=== PATIENT | female | born 1940 | race Hispanic/Latino ===

== ENCOUNTER 2020-06-09 22:23 | Observation (INO) | payer MEDICARE ==
[~2020-06-09] VITALS: Ht 152.4 cm; Wt 62.2 kg
--- NOTE | 2020-06-09 22:47 | Emergency Department Note ---
History of Present Illnes History of Present Illness History of Present Illness This is a 79 year old female presents to the ED for one week h/o dizziness and one day h/o of epigastric pain. Patient seen at bedside with unlabored respirations in NAD Historian: Patient Onset (how long ago): day(s) (1) Radiation: Reports non-radiation Severity: moderate Onset quality: gradual Duration (how long): day(s) Timing of current episode: constant Progression: unchanged Chronicity: new Relieving factors: none Exacerbating factors: none Associated symptoms: Reports chest pain Treatments prior to arrival: none Past Medical/Family History Physician Review I have reviewed the patient's past medical and family history. Any updates have been documented here. Past Medical History Recent Fever: No Clinical Suspicion of Infectio: No New/Unexplained Change in Ment: No Past Medical History: Hypertension Past Surgical History: None Social History Smoking Cessation: Never Smoker Alcohol Use: None Any Illegal Drug Use: No Review of Systems Review of Systems Constitutional: Reports no symptoms EENTM: Reports no symptoms Cardiovascular: Reports chest pain Respiratory: Reports no symptoms Gastrointestinal: Reports no symptoms Genitourinary: Reports no symptoms Musculoskeletal: Reports no symptoms Integumentary: Reports no symptoms Neurological: Reports headache Psychological: Reports no symptoms Endocrine: Reports no symptoms Hematological/Lymphatic: Reports no symptoms Physical Exam Related Data Allergies: Coded Allergies: No Known Allergies (Unverified , 06/09/20) Triage Vital Signs Vital Signs Date Time Temp Pulse Resp B/P (MAP) Pulse Ox O2 Delivery O2 Flow Rate FiO2 06/09/20 22:54 98.3 78 17 167/74 98 06/10/20 00:42 Room Air Vital signs reviewed: Yes Physical Exam CONSTITUTIONAL Constitutional: Present well-developed, Present well-nourished HENT HENT: Present normocephalic, Present atraumatic, Present oropharynx clear/moist, Present nose normal HENT L/R: Present left ext ear normal, Present right ext ear normal EYES Eyes: Reports PERRL, Reports conjunctivae normal NECK Neck: Present ROM normal PULMONARY Pulmonary: Present effort normal, Present breath sounds normal CARDIOVASCULAR Cardiovascular: Present regular rhythm, Present heart sounds normal, Present capillary refill normal, Present normal rate GASTROINTESTINAL Abdominal: Present soft, Present nontender, Present bowel sounds normal GENITOURINARY Genitourinary: Present exam deferred SKIN Skin: Present warm, Present dry MUSCULOSKELETAL Musculoskeletal: Present ROM normal NEUROLOGICAL Neurological: Present alert, Present oriented x 3, Present no gross motor or sensory deficits PSYCHOLOGICAL Psychological: Present mood/affect normal, Present judgement normal Results Laboratory Lab results reviewed: Yes Imaging Imaging results reviewed: Yes Impressions [place] [id number] Patient Name: JANET KELLY MR #: [id number] : 1940 Age/Sex: 79/F Req #: [id number] Adm Physician: Ordered by: SAMANTHA AREVALO DO Report #: [id number] Location: ER Room/Bed: Procedure: [id number] DX/CHEST SINGLE (PORTABLE) Exam Date: 06/09/20 Exam Time: 2330 REPORT STATUS: Signed EXAMINATION: CHEST SINGLE (PORTABLE) INDICATION: Dizziness, headache COMPARISON: None FINDINGS: TUBES and LINES: None. LUNGS: Normal lung volumes. Lungs are clear. No consolidations. PLEURA: No pleural effusion or pneumothorax. HEART AND MEDIASTINUM: The cardiomediastinal silhouette is unremarkable. Aortic calcifications. BONES AND SOFT TISSUES: No acute osseous lesion. Soft tissues are unremarkable. Degenerative changes. UPPER ABDOMEN: No free air under the diaphragm. IMPRESSION: No acute thoracic radiographic abnormality. Signed by: Dakota Morrison DO on 06/10/2020 12:15 AM Dictated By: DAKOTA MORRISON DO Transcribed By: ANUP on 06/10/2014 COPY TO: SAMANTHA AREVALO DO~ [place] [id number] Patient Name: JANET KELLY MR #: [id number] : 1940 Age/Sex: 79/F Req #: [id number] Adm Physician: Ordered by: SAMANTHA AREVALO DO Report #: [id number] Location: Room/Bed: Procedure: [id number] CT/CT BRAIN WO Exam Date: 06/09/20 Exam Time: 2324 REPORT STATUS: Signed EXAMINATION: Head CT without contrast. HISTORY:Headache, dizziness. COMPARISON:None. TECHNIQUE: Multidetector axial images were obtained from the foramen magnum to the vertex without contrast. The images were reconstructed using brain and bone algorithms. Thin section brain images were reformatted into coronal and sagittal planes. Dose modulation, iterative reconstruction, and/or weight based adjustment of the mA/kV was utilized to reduce the radiation dose to as low as reasonably achievable. Intravenous contrast: None IMAGE QUALITY: Acceptable. FINDINGS: Skull/scalp: No lytic or blastic. lesions. No surgical changes. Parenchyma: Nonspecific few, scattered supratentorial white matter hypodensity are likely related to small vessel ischemic changes. No acute hemorrhage, mass or acute major vascular territorial infarct. Arteries: No density suggestive of thrombosis. Dural sinuses: No abnormal density suggestive of thrombosis. Ventricles: No hydrocephalus or displacement. Extra-axial spaces: No abnormal density. Brain volume: Mild generalized cerebral volume loss. Craniocervical junction: No mass, Chiari malformation, or basilar invagination. Sella: No mass. Paranasal/mastoid sinuses: Imaged portions unremarkable. IMPRESSION: No acute intracranial abnormality. Signed by: Dr. Ambika Hoyos M.D. on 06/09/2020 11:38 PM Dictated By: AMBIKA HOYOS MD 37 Transcribed By: ANUP on 06/09/202337 COPY TO: SAMANTHA AREVALO DO~ Procedures 12 Lead ECG Interpretation ECG Interpretation : ECG: ECG 1 Bender Helper: Interpreted by ED physician Date: Jun 09, 2020 Time: 23:32 Prior ECG tracings: reviewed Rate: normal BPM: 70 QRS axis: normal ST segments normal: Yes T waves normal: Yes Clinical Impression: non-specific ECG Clinical Decision Tools HEART Score Another reason for symptoms: HEART score not applicable HEART Score: HEART Score Response (Comments) Value History Slightly suspicious 0 EKG Normal 0 Age > or equal to 65 2 Risk factors 1 or 2 risk factors 1 Troponin < or = to normal limit Total 3 Assessment & Plan Medical Decision Making MDM Diff Dx: CVA, ACS , sepsis Assessment & Plan Final Impression: (1) Angina at rest (2) Dizzinesses Depart Disposition: ADMITTED Home Meds Reported Medications Benazepril/Hydrochlorothiazide (BENAZEPRIL-HCTZ 10-12.5 MG TAB) 1 Each Tablet, 1 PO DAILY 06/10/20 Aspirin (ASPIRIN) 81 Mg Tab.chew, 81 06/10/20 Simvastatin (SIMVASTATIN) 40 Mg Tablet, 40 MG PO 2100, #30 TAB 06/10/20 SAMANTHA AREVALO DO Jun 09, 2020 22:47
[2020-06-09] MEDS ORDERED: ASPIRIN 81 MG CHEW TAB PO ONE (23:00)
[2020-06-09 23:22] LABS: BASOPHILS % 0.4 % (0.0-1.0); EOSINOPHILS # (AUTO) 0.1 (0.0-0.4); EOSINOPHILS % 1.3 % (0.0-6.0); HEMATOCRIT 36.4 % (34.2-44.1); HEMOGLOBIN 11.8 g/dL (12.0-16.0); LYMPHOCYTES # (AUTO) 1.9 (1.0-3.2); LYMPHOCYTES % 28.4 % (18.0-39.1); MEAN CORPUSCULAR HEMOGLOBIN 29.9 pg (28-32); MEAN CORPUSCULAR HGB CONC 32.4 g/dL (31-35); MEAN CORPUSCULAR VOLUME 92.4 fL (81-99); MONOCYTES # (AUTO) 0.7 (0.2-0.8); MONOCYTES % 10.1 % (4.4-11.3); NEUTROPHILS # (AUTO) 4.1 (2.1-6.9); NEUTROPHILS % 59.7 % (38.7-80.0); PLATELET COUNT 369 x10e3/uL (140-360); RED BLOOD COUNT 3.94 x10e6/uL (3.6-5.1); RED CELL DISTRIBUTION WIDTH 14.1 % (11.7-14.4)
[2020-06-09 23:36] LABS: ALBUMIN/GLOBULIN RATIO 0.9 (0.8-2.0); ANION GAP 14.1 mmol/L (8-16); CREATININE, SERUM 1.04 mg/dL (0.57-1.11); POTASSIUM 4.1 mmol/L (3.5-5.1)
--- NOTE | 2020-06-09 23:41 | Diagnostic Imaging Report ---
EXAMINATION: Head CT without contrast. HISTORY:Headache, dizziness. COMPARISON:None. TECHNIQUE: Multidetector axial images were obtained from the foramen magnum to the vertex without contrast. The images were reconstructed using brain and bone algorithms. Thin section brain images were reformatted into coronal and sagittal planes. Dose modulation, iterative reconstruction, and/or weight based adjustment of the mA/kV was utilized to reduce the radiation dose to as low as reasonably achievable. Intravenous contrast: None IMAGE QUALITY: Acceptable. FINDINGS: Skull/scalp: No lytic or blastic. lesions. No surgical changes. Parenchyma: Nonspecific few, scattered supratentorial white matter hypodensity are likely related to small vessel ischemic changes. No acute hemorrhage, mass or acute major vascular territorial infarct. Arteries: No density suggestive of thrombosis. Dural sinuses: No abnormal density suggestive of thrombosis. Ventricles: No hydrocephalus or displacement. Extra-axial spaces: No abnormal density. Brain volume: Mild generalized cerebral volume loss. Craniocervical junction: No mass, Chiari malformation, or basilar invagination. Sella: No mass. Paranasal/mastoid sinuses: Imaged portions unremarkable. IMPRESSION: No acute intracranial abnormality. Signed by: Dr. Ambika Hoyos M.D. on 06/09/2020 11:38 PM
[2020-06-09 23:43] LABS: CREATINE KINASE MB 5.7 ng/mL (0-5.0)
[2020-06-09] MEDS ORDERED: FAMOTIDINE 20 MG/2 ML VIAL IV STA (23:55)
--- NOTE | 2020-06-10 00:19 | Diagnostic Imaging Report ---
EXAMINATION: CHEST SINGLE (PORTABLE) INDICATION: Dizziness, headache COMPARISON: None FINDINGS: TUBES and LINES: None. LUNGS: Normal lung volumes. Lungs are clear. No consolidations. PLEURA: No pleural effusion or pneumothorax. HEART AND MEDIASTINUM: The cardiomediastinal silhouette is unremarkable. Aortic calcifications. BONES AND SOFT TISSUES: No acute osseous lesion. Soft tissues are unremarkable. Degenerative changes. UPPER ABDOMEN: No free air under the diaphragm. IMPRESSION: No acute thoracic radiographic abnormality. Signed by: Dakota Morrison DO on 06/10/2020 12:15 AM
--- OUTSIDE RECORDS SUMMARY | 2020-06-10 00:25 | XMS REPORT | Continuity of Care Document ---
Author Author [facility] t Organization 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 hypercholesterolemia Pure Hypercholesterolemia Problem Ac tive 2015-08-21 00:00:00 [facility] Hypertensive disorder Hypertensive Disorder Problem Active 201 01-16-15 00:00:00 [facility] ractice Arthropathy Arthropathy Problem Active 2015-08-21 00:00:00 [facility] Knee pain Knee Pain Problem Active 2015-08-21 00:00:00 [facility] Allergies, Adverse Reactions, Alerts This patient has no known allergies or adverse reactions. Social History Smoking Status Start Date Stop Date Source Never Smoker [facility] Medications Ordered Medication Name Filled Medication Name Start Date Stop Da te Current Medication? Ordering Clinician Indication Dosage Frequency Signature (SIG) Comments Components Source benazepril 10 mg-hydrochlorothiazide 12. 5 mg tablet TAKE 1 TABLET BY MOUTH EVERY DAY benazepril 10 mg-hydrochlorothiazide 12. 5 mg tablet TAKE 1 TABLET BY MOUTH EVERY DAY No benazepril 10 mg-hydrochlorothiazide 12.5 mg tablet TAKE 1 TABLET BY MOUTH EVERY DAY [facility] simvastatin 40 mg tablet TAKE 1 TABLET BY MOUTH IN THE EVENING simvastatin 40 mg tablet TAKE 1 TABLET BY MOUTH IN THE EVENING No simvastatin 40 mg tablet TAKE 1 TABLET BY MOUTH IN THE EVENING [facility] Vitamin D2 50,000 unit capsule Take 1 ca psule every week by oral route for 90 days. Vitamin D2 50,000 unit capsule Take 1 ca psule every week by oral route for 90 days. No 1capsule(s) Q1W Vitamin D2 50,000 unit capsule Take 1 capsule every week by oral route for 90 days. [facility] levofloxacin 500 mg tablet levofloxacin 500 mg tablet 2017 00:00:00 No levofloxacin 500 mg tablet [facility] Ilevro 0.3 % eye drops,suspension Ilevro 0.3 % eye drops,suspens ion 2016-11-04 00:00:00 No Ilevro 0.3 % eye drops,suspensi on [facility] ketorolac 0.5 % eye drops ketorolac 0.5 % eye drops 00:00:00 No ketorolac 0.5 % eye drops [facility] prednisolone acetate 1 % eye drops,suspension predniso lone acetate 1 % eye drops,suspension 2016-11-04 00:00:00 No prednisolone acetate 1 % [facility] drops,suspension [facility] Pre[facility]ar 13 (PF) 0.5 mL intramuscular syringe Prevnar 1 3 (PF) 0.5 mL intramuscular syringe 2016-11-04 00:00:00 No Prevnar 13 (PF) 0.5 mL intramuscular syringe [facility] ctice Vigamox 0.5 % eye drops Vigamox 0.5 % eye drops 2016-11-04 00:00 :00 No Vigamox 0.5 % eye drops [facility] Immunizations Ordered Immunization Name Filled Immunization Name Date Status Comments Source influenza, high dose seasonal influenza, high dose seasonal 2017 17:00:00 Completed [facility] pneumococcal conjugate PCV 13 pneumococcal conjugate PCV 13 2015 00:00:00 Completed [facility] influenza, seasonal, injectable influenza, seasonal, injecta ble 2014-09-21 00:00:[address] [facility] Vital Signs Vital Name Observation Time Observation Value Comments Source BP Diastolic 2017-09-21 00:00:00 74 mm[Hg] [facility] Height 2017-09-21 00:00:00 62 [in_i] [facility] BMI (Body Mass Index) 2017-09-21 00:00:00 27.4 kg/m2 [facility] BP Systolic 2017-09-21 00:00:00 116 mm[Hg] [facility] Body Weight 2017-09-21 00:00:00 150 [lb_av] [facility] BP Diastolic 2017-05-14 00:00:00 72 mm[Hg] [facility] Height 2017-05-14 00:00:00 62 [in_i] [facility] BMI (Body Mass Index) 2017-05-14 00:00:00 27.8 kg/m2 [facility] BP Systolic 2017-05-14 00:00:00 122 mm[Hg] [facility] Body Weight 2017-05-14 00:00:00 152 [lb_av] [facility] BP Diastolic 2016-11-04 00:00:00 86 mm[Hg] [facility] Height 2016-11-04 00:00:00 62 [in_i] [facility] BMI (Body Mass Index) 2016-11-04 00:00:00 27.8 kg/m2 [facility] BP Systolic 2016-11-04 00:00:00 138 mm[Hg] [facility] Body Weight 2016-11-04 00:00:00 152 [lb_av] [facility] BP Diastolic 2015-11-27 00:00:00 67 mm[Hg] [facility] Height 2015-11-27 00:00:00 62 [in_i] [facility] BP Systolic 2015-11-27 00:00:00 134 mm[Hg] [facility] Body Weight 2015-11-27 00:00:00 151.2 [lb_av] [facility] BMI (Body Mass Index) 2015-11-27 00:00:00 27.65 kg/m2 [facility] BP Diastolic 2015-08-21 00:00:00 82 mm[Hg] [facility] Height 2015-08-21 00:00:00 62 [in_i] [facility] BMI (Body Mass Index) 2015-08-21 00:00:00 27.21 kg/m2 [facility] BP Systolic 2015-08-21 00:00:00 124 mm[Hg] [facility] Body Weight 2015-08-21 00:00:00 148.8 [lb_av] [facility] BP Diastolic 2015-05-01 00:00:00 80 mm[Hg] [facility] Height 2015-05-01 00:00:00 62 [in_i] [facility] BMI (Body Mass Index) 2015-05-01 00:00:00 27.76 kg/m2 [facility] BP Systolic 2015-05-01 00:00:00 135 mm[Hg] [facility] Body Weight 2015-05-01 00:00:00 151.8 [lb_av] [facility] BP Diastolic 2014-12-21 00:00:00 68 mm[Hg] [facility] Height 2014-12-21 00:00:00 62 [in_i] [facility] BMI (Body Mass Index) 2014-12-21 00:00:00 27.03 kg/m2 [facility] BP Systolic 2014-12-21 00:00:00 132 mm[Hg] [facility] Body Weight 2014-12-21 00:00:00 147.8 [lb_av] [facility] BP Diastolic 2014-09-21 00:00:00 70 mm[Hg] [facility] Height 2014-09-21 00:00:00 62 [in_i] [facility] BMI (Body Mass Index) 2014-09-21 00:00:00 26.59 kg/m2 [facility] BP Systolic 2014-09-21 00:00:00 110 mm[Hg] [facility] Body Weight 2014-09-21 00:00:00 145.4 [lb_av] [facility] Height 2014-04-25 00:00:00 62 [in_i] [facility] Body Weight 2014-04-25 00:00:00 146.2 [lb_av] [facility] Height 2014-03-27 00:00:00 62 [in_i] [facility] Body Weight 2014-03-27 00:00:00 149.4 [lb_av] [facility] Height 2013-06-20 00:00:00 62 [in_i] [facility] Body Weight 2013-06-20 00:00:00 143.6 [lb_av] [facility] Height 2012-12-31 00:00:00 62 [in_i] [facility] Body Weight 2012-12-31 00:00:00 149.4 [lb_av] [facility] Height 2012-12-01 00:00:00 62 [in_i] [facility] Body Weight 2012-12-01 00:00:00 147 [lb_av] [facility] Procedures Procedure Date / Time Performed Performing Clinician Sourc e bone density 2017-05-14 00:00:00 [facility] Plan of Care Planned Activity Planned Date Details Comments Source Instructions [facility] Encounters Start Date/Time End Date/Time Encounter Type Admission Type [facility] Care Department Encounter ID Source 2017-10-09 00:00:00 2017-10-09 00:00:00 Katie Hemphill: [address], [address], [place] [address], Ph[address] [facility] Care Management [id number] [facility] 2017-09-22 00:00:00 2017-09-22 00:00:00 Katie Hemphill: [address], [address], [place] [address], Ph. [facility] [id number] [facility] 2017-09-21 00:00:00 2017-09-21 00:00:00 CHIKI KoenigP: [id number] Counts Include [facility], [facility] [address] [place] [address], Ph. [facility] [id number] [facility] 2017-05-14 00:00:00 2017-05-14 00:00:00 CHIKI KoeingP: [id number] Counts Include [address] [facility], [facility] [address], [place] [address], Ph. [facility] [id number] [facility] 2016-11-04 00:00:00 2016-11-04 00:00:00 KELBY Negrete : [id number] Counts Include [address] [facility], [address], [place] [address], Ph. [facility] [id number] [facility] Practice Results Test Description Test Time Test Comments Results Result Comments Source CHEST SINGLE (PORTABLE) 2020-06-10 00:14:00 [facility] [address] [address] Patient Name: JANET KELLY MR #: [id number] : 1940 Age/Sex: 79/F Req #: [id number] Adm Physician: Ordered by: SAMANTHA AREVALO DO Report #: [id number] Location: ER Room/Bed: Procedure: [id number] DX/CHEST SINGLE (PORTABLE) Exam Date: 06/09/20 Exam Time: 2330 REPORT STATUS: Signed EXAMINATION: CHEST SINGLE (PORTABLE) INDICATION: Dizziness, headache COMPARISON: None FINDINGS: TUBES and LINES: None. LUNGS: Normal lung volumes. Lungs are clear. No consolidations. PLEURA: No pleural effusion or pneumothorax. HEART AND MEDIASTINUM: The cardiomediastinal silhouette is unremarkable. Aortic calcifications. BONES AND SOFT TISSUES: No acute osseous lesion. Soft tissues are unremarkable. Degenerative changes. UPPER ABDOMEN: No free air under the diaphragm. IMPRESSION: No acute thoracic radiographic abnormality. Signed by: Dakota Morrison DO on 06/10/2020 12:15 AM Dictated By: DAKOTA MORRISON DO Transcribed By: ANUP on 06/10/2014 COPY TO: SAMANTHA AREVALO DO CT BRAIN WO 2020-06-09 23:35:[address] [address] Patient Name: JANET KELLY MR #: [id number] : 1940 Age/Sex: 79/F Req #: [id number] Adm Physician: Ordered by: SAMANTHA AREVALO DO Report #: [id number] Location: ER Room/Bed: Procedure: [id number] CT/CT BRAIN WO Exam Date: 06/09/20 Exam Time: 2325 REPORT STATUS: Signed EXAMINATION: Head CT without contrast. HISTORY:Headache, dizziness. COMPARISON:None. TECHNIQUE: Multidetector axial images were obtained from the foramen magnum to the vertex without contrast. The images were reconstructed using brain and bone algorithms. Thin section brain images were reformatted into coronal and sagittal planes. Dose modulation, iterative reconstruction, and/or weight based adjustment of the mA/kV was utilized to reduce the radiation dose to as low as reasonably achievable. Intravenous contrast: None IMAGE QUALITY: Acceptable. FINDINGS: Skull/scalp: No lytic or blastic. lesions. No surgical c hanges. Parenchyma: Nonspecific few, scattered supratentorial white matter hypodensity are likely related to small vessel ischemic changes. No acute hemorrhage, mass or acute major vascular territorial infarct. Arteries: No density suggestive of thrombosis. Dural sinuses: No abnormal density suggestive of thrombosis. Ventricles: No hydrocephalus or displacement. Extra-axial spaces: No abnormal density. Brain volume: Mild generalized cerebral volume loss. Craniocervical junction: No mass, Chiari malformation, or basilar invagination. Sella: No mass. Paranasal/mastoid sinuses: Imaged portions unremarkable. IMPRESSION: No acute intracranial abnormality. Signed by: Dr. Ambika Hoyos M.D. on 06/09/2020 11:38 PM Dictated By: AMBIKA HOYOS MD 37 Transcribed By: ANUP on 06/09/202337 COPY TO: SAMANTHA AREVALO DO Hemoglobin A1c/Hemoglobin.total in Blood 2017-05-15 07:31:00 Test Item hemoglobin A1C (test code = hemoglobin A1C) 5.6 % of total HGB <5.7 EAG (mg/dL) (test code = EAG (mg/dL)) 114 (calc) EAG (mmol/L) (test code = EAG (mmol/L)) 6.3 (calc) [id number] D [Mass/volume] in Serum or Plasma 2017-05-15 07:31:00* Test Item Value Reference Range Interpretation Comments vitamin D,25-oh,total,ia (test code = vitamin D,25-oh,total,ia) 14 NG/mL 30-100 L [facility] - [facility] or Plasma 2017-05-15 07:31:00* Test Item Value Reference Range Interpretation Comments glucose (test code = glucose) 94 mg/dL 65-99 urea nitrogen (BUN) (test code = urea nitrogen (BUN)) 24 mg/dL 7-25 creatinine (test code = creatinine) 0.92 mg/dL 0.60-0.93 eGFR non-afr. prydeinig (test code = eGFR non-afr. prydeinig) 61 mL/min/1.73m2 > or = 60 eGFR (test code = eGFR ) 71 mL/min/1.73m2 > or = 60 BUN/creatinine ratio (test code = BUN/creatinine ratio) not applica ble 6-22 sodium (test code = sodium) 141 mmol/L 135-146 potassium (test code = potassium) 4.4 mmol/L 3.5-5.3 chloride (test code = chloride) 107 mmol/L 98-110 carbon dioxide (test code = carbon dioxide) 23 mmol/L 20-31 calcium (test code = calcium) 9.9 mg/dL 8.6-10.4 protein, total (test code = protein, total) 8.3 g/dL 6.1-8.1 H albumin (test code = albumin) 4.3 g/dL 3.6-5.1 globulin (test code = globulin) 4.0 g/dL (calc) 1.9-3.7 H albumin/globulin ratio (test code = albumin/globulin ratio) 1.1 (calc) 1.0-2.5 bilirubin, total (test code = bilirubin, total) 0.3 mg/dL 0.2-1. 2 alkaline phosphatase (test code = alkaline phosphatase) 104 U/L 33-130 AST (test code = AST) 18 U/L 10-35 ALT (test code = ALT) 15 U/L 6-29 [facility] free [Mass/volume] in Serum or Plasma 2017-05-15 07:31:00* Test Item Value Reference Range Interpretation Comments T4, free (test code = T4, free) 1.1 NG/dL 0.8-1.8 [facility] 1996 panel - Serum or [id number] 07:31:00* Test Item Value Reference Range Interpretation Comments cholesterol, total (test code = cholesterol, total) 140 mg/dL <2 00 HDL cholesterol (test code = HDL cholesterol) 43 mg/dL >50 L triglycerides (test code = triglycerides) 216 mg/dL <150 H LDL-cholesterol (test code = LDL-cholesterol) 69 mg/dL (calc) chol/HDLC ratio (test code = chol/HDLC ratio) 3.3 (calc) <5.0 non HDL cholesterol (test code = non HDL cholesterol) 97 mg/dL (belinda c) <130 [facility]CB [facility] Auto Differential panel - [id number] 07:31:00 * Test Item Value Reference Range Interpretation Comments white blood cell count (test code = white blood cell count) 7.4 thousand/uL 3.8-10.8 red blood cell count (test code = red blood cell count) 3.95 million/uL 3.80-5.10 hemoglobin (test code = hemoglobin) 11.9 g/dL 11.7-15.5 hematocrit (test code = hematocrit) 35.8 % 35.0-45.0 MCV (test code = MCV) 90.6 fL 80.0-100.0 MCH (test code = MCH) 30.1 pg 27.0-33.0 MCHC (test code = MCHC) 33.2 g/dL 32.0-36.0 RDW (test code = RDW) 13.7 % 11.0-15.0 platelet count (test code = platelet count) 396 thousand/uL 140-400 MPV (test code = MPV) 9.9 fL 7.5-12.5 absolute neutrophils (test code = absolute neutrophils) 3922 bradley ls/uL 9638-2211 absolute lymphocytes (test code = absolute lymphocytes) 2708 bradley ls/uL 850-3900 absolute monocytes (test code = absolute monocytes) 636 cells/uL 20 0-950 absolute eosinophils (test code = absolute eosinophils) 111 cells/u L 15-500 absolute basophils (test code = absolute basophils) 22 cells/uL 0- 200 neutrophils (test code = neutrophils) 53 % lymphocytes (test code = lymphocytes) 36.6 % monocytes (test code = monocytes) 8.6 % eosinophils (test code = eosinophils) 1.5 % basophils (test code = basophils) 0.3 % [facility]in [Units/volume] in Serum or [id number] 07:31:00* Test Item Value Reference Range Interpretation Comments TSH (test code = TSH) 1.75 mIU/L 0.40-4.50 [facility]
[2020-06-10 01:00] LABS: BILIRUBIN,URINE NEGATIVE (NEGATIVE); CLARITY,URINE CLOUDY (CLEAR); COLOR,URINE YELLOW (YELLOW); KETONES,URINE NEGATIVE (NEGATIVE); LEUKOCYTE ESTERASE ,URINE NEGATIVE (NEGATIVE); NITRITE,URINE NEGATIVE (NEGATIVE); PROTEIN,URINE DIPSTICK NEGATIVE (NEGATIVE); URINE UROBILINOGEN 0.2 mg/dL (0.2 - 1)
[2020-06-10 01:01] LABS: BACTERIA,URINE FEW /HPF; EPITHELIAL CELLS,URINE MODERATE /LPF; WBC,URINE (MAN) 0-5 /HPF (0-5)
[2020-06-10] MEDS ORDERED: LORAZEPAM INJ 2 MG/ML VIAL IV STA (01:41)
[2020-06-10] MEDS ORDERED: MORPHINE SULFATE INJ 4 MG/ML INJ 1ML IV PRN (01:45)
[2020-06-10] MEDS ORDERED: ASPIRIN 81 MG CHEW TAB PO ONE (01:45)
[2020-06-10] MEDS ORDERED: ONDANSETRON HCL INJ 2MG/ML 2ML 2 MG/ML VIAL IV PRN (01:45)
--- OUTSIDE RECORDS SUMMARY | 2020-06-10 03:02 | XMS REPORT | Continuity of Care Document ---
Author Author [facility] t Organization [facility] Address [address] [place] [address] Phone Unavailable Care Team Providers [employer] Name Role Phone SAMANTHA AREVALO Unavailable Problems Condition Name Condition Details Condition Category Status Onset Date Resolution Date Last Treatment Date Treating Clinician Comments Source Prediabetes Prediabetes Problem Active 2017-05-14 00:00:00 [facility] Venous retinal branch occlusion Venous Retinal Branch Occlusion Pro blem Active 2015-12-07 00:00:00 [facility] Vitreous detachment of right eye Vitreous Detachment of Right Ey e Problem Active 2015-12[facility]07 [facility] Vitamin D deficiency Vitamin D Deficiency [facility] hypercholesterolemia Pure Hypercholesterolemia Problem Ac tive 2015-08-21 00:00:00 [facility] Hypertensive disorder Hypertensive Disorder Problem Active 201 01-16-15 00:00:00 [facility] ractice Arthropathy Arthropathy Problem Active 2015-08-21 00:00:00 [facility] Knee pain Knee Pain Problem Active 2015-08-21 00:00:00 [facility] Allergies, Adverse Reactions, Alerts This patient has no known allergies or adverse reactions. Social History Smoking Status Start Date Stop Date Source Never Smoker [facility] Medications Ordered Medication Name [...] TAKE 1 TABLET BY MOUTH EVERY DAY [facility] simvastatin 40 mg tablet TAKE 1 TABLET BY MOUTH IN THE EVENING simvastatin 40 mg tablet TAKE 1 TABLET BY MOUTH IN THE EVENING No simvastatin 40 mg tablet TAKE 1 TABLET BY MOUTH IN THE EVENING [facility] Vitamin D2 50,000 unit capsule Take 1 ca psule every week by oral route for 90 days. Vitamin D2 50,000 unit capsule Take 1 ca psule every week by oral route for 90 days. No 1capsule(s) Q1W Vitamin D2 50,000 unit capsule Take 1 capsule every week by oral route for 90 days. [facility] levofloxacin 500 mg tablet levofloxacin 500 mg tablet 2017 00:00:00 No levofloxacin 500 mg tablet [facility] Ilevro 0.3 % eye drops,suspension Ilevro 0.3 % eye drops,suspens ion 2016-11-04 00:00:00 No Ilevro 0.3 % eye drops,suspensi on [facility] ketorolac 0.5 % eye drops ketorolac 0.5 % eye drops 00:00:00 No ketorolac 0.5 % eye drops [facility] prednisolone acetate 1 % eye drops,suspension predniso lone acetate 1 % eye drops,suspension 2016-11-04 00:00:00 No prednisolone acetate 1 % eye drops,suspension [facility] Prevnar 13 (PF) 0.5 mL intramuscular syringe Prevnar 1 3 (PF) 0.5 mL intramuscular syringe 2016-11-04 00:00:00 No Prevnar 13 (PF) 0.5 mL intramuscular syringe [facility] ctice Vigamox 0.5 % eye drops Vigamox 0.5 % eye drops 2016-11-04 00:00 :00 No Vigamox 0.5 % eye drops [facility] Immunizations Ordered Immunization Name Filled Immunization Name Date Status Comments Source influenza, high dose seasonal influenza, high dose seasonal 2017 17:00:00 Completed [facility] pneumococcal conjugate PCV 13 pneumococcal conjugate PCV 13 2015 00:00:00 Completed [facility] influenza, seasonal, injectable influenza, seasonal, injecta ble 2014-09-21 00:00:00 [facility] Vital Signs Vital Name Observation Time Observation Value Comments Source BP Diastolic 2017-09-21 00:00:00 74 mm[Hg] [facility] Height 2017-09-21 00:00:00 62 [in_i] [facility] BMI (Body Mass Index) 2017-09-21 00:00:00 27.4 kg/m2 [facility] BP Systolic 2017-09-21 00:00:00 116 mm[Hg] [facility] (Body Mass Index) 2015-05-01 00:00:00 27.76 kg/m2 [facility] BP Systolic 2015-05-01 00:00:00 135 mm[Hg] [facility] Body Weight 2015-05-01 00:00:00 151.8 [lb_av] [facility] BP Diastolic 2014-12-21 00:00:00 68 mm[Hg] [facility] Height 2014-12-21 00:00:00 62 [in_i] [facility] BMI (Body Mass Index) 2014-12-21 00:00:00 27.03 kg/m2 [facility] BP Systolic 2014-12-21 00:00:00 132 mm[Hg] [facility] Body Weight 2014-12-21 00:00:00 147.8 [lb_av] [facility] BP Diastolic 2014-09-21 00:00:00 70 mm[Hg] [facility] Height 2014-09-21 00:00:00 62 [in_i] [facility] BMI (Body Mass Index) 2014-09-21 00:00:00 26.59 kg/m2 [facility] BP Systolic 2014-09-21 00:00:00 110 [...] Clinician Sourc e bone density 2017-05-14 00:00:00 [facility] Plan of Care Planned Activity Planned Date Details Comments Source Instructions [facility] Encounters Start Date/Time End Date/Time Encounter Type Admission Type Attendi [facility] Care Department Encounter ID Source 2017-10-09 00:00:00 2017-10-09 00:00:00 Katie Hemphill: [address], [address], [place] [address], Ph. [facility] Care Management [id number] [facility] 2017-09-22 00:00:00 2017-09-22 00:00:00 Katie Hemphill: [address], [place] [address], Ph. [facility] [id number] [facility] 2017-09-21 00:00:00 2017-09-21 00:00:00 CHIKI KoenigP: [address] [facility] [address], [place] [address], Ph. [facility] [id number] [facility] 2017-05-14 00:00:00 2017-05-14 00:00:00 CHIKI KoenigP: [address] [address] [facility] [address], [place] [address], Ph. [facility] [id number] [facility] 2016-11-04 00:00:00 2016-11-04 00:00:00 KELBY Negrete : [address], [address], [place] [address], Ph. [facility] [id number] [facility] Practice Results Test Description Test Time Test Comments Results Result Comments Source CHEST SINGLE (PORTABLE) 2020-06-10 00:14:00 [facility] [address] [address] Patient Name: JANET KELLY MR #: [id number] : 1940 Age/Sex: 79/F Req #: [id number] Adm Physician: Ordered by: SAMANTHA AREVALO DO Report #: [id number] Location: ER Room/Bed: Procedure: [id number] DX/CHEST SINGLE (PORTABLE) Exam Date: 06/09/20 Exam [...] AREVALO DO CT BRAIN WO 2020-06-09 23:35:[address] [address] Patient Name: JANET KELLY MR #: [id number] : 1940 Age/Sex: 79/F Req #: [id number] Adm Physician: Ordered by: SAMANTHA AREVALO DO Report #: [id number] Location: ER Room/Bed: Procedure: [id number] CT/CT BRAIN WO Exam Date: 06/09/20 Exam [...] = EAG (mmol/L)) 6.3 (calc) [facility] Nfwlavxo92-Oirddusygrsdof D [Mass/volume] in Serum or Plasma 2017-05-15 07:31:00* Test Item Value Reference Range Interpretation Comments vitamin D,25-oh,total,ia (test code = vitamin D,25-oh,total,ia) 14 NG/mL 30-100 L [facility] - Serum or Plasma 2017-05-15 07:31:00* Test Item Value Reference Range Interpretation Comments glucose (test code = glucose) 94 mg/dL 65-99 urea nitrogen (BUN) (test code = urea nitrogen (BUN)) 24 mg/dL 7-25 creatinine (test code = creatinine) 0.92 mg/dL 0.60-0.93 eGFR non-afr. [facility] (test code = eGFR non-afr. [facility]) 61 mL/min/1.73m2 > or = 60 eGFR [...] (test code = ALT) 15 U/L 6-29 [facility] free [Mass/volume] in Serum or Plasma 2017-05-15 07:31:00* Test Item Value Reference Range Interpretation Comments T4, free (test code = T4, free) 1.1 NG/dL 0.8-1.8 [facility] 1996 panel - Serum or [id number] 07:31:00* Test Item Value Reference Range Interpretation [...] HDL cholesterol) 97 mg/dL (belinda c) <130 [facility] W Auto Differential panel - [id number] 07:31:00 * Test Item Value Reference Range [...] code = absolute neutrophils) 3922 bradley ls/uL 1288-2398 absolute lymphocytes (test code = absolute lymphocytes) [...] basophils (test code = basophils) 0.3 % [facility] [Units/volume] in Serum or [id number] 07:31:00* Test Item Value Reference Range Interpretation Comments TSH (test code = TSH) 1.75 mIU/L 0.40-4.50 [facility]
[2020-06-10 03:29] VITALS: BP 140/68
[2020-06-10 03:42] VITALS: BP 140/68
[2020-06-10] MEDS ORDERED: ASPIRIN81 MG (03:54)
[2020-06-10] MEDS ORDERED: BENAZEPRIL-HCT1 EAC1 PO (03:54)
[2020-06-10] MEDS ORDERED: SIMVASTATIN40 MG PO (03:54)
--- NOTE | 2020-06-10 03:57 | NUR ---
PT IS TRANSFERRED FROM ER AOX3 .RESPIRATIONS ARE EVEN AND UNLABORED PT HAS SKIN WARM AND DRY TO TOUCH LEFT AC 20 G S/L PHYSICAL ASSESSMENT DONE ,ORIENTED THE PT TO THE ENVIRONMENT TELE #30 SHOWS SR .CALL LIGHT WITH IN REACH .CONTINUE TO MONITOR
[2020-06-10 05:27] VITALS: BP 140/65
--- NOTE | 2020-06-10 07:00 | NUR ---
RCD PT AT BED PT IS ALERT AND ORIENTED RESTING ON BED IV PATENT BED LOW AND LOCKED CALL LIGHT IN REACH
--- NOTE | 2020-06-10 07:16 | NUR ---
BS IS 56 AND GIVEN ORANGE JUICE AND JELLO AND BEDSIDE REPORT GIVEN TO THE ONCOMING NURSE
--- NOTE | 2020-06-10 07:18 | NUR ---
BEDSIDE REPORT GIVEN TO THE ONCOMING NURSE
--- NOTE | 2020-06-10 08:00 | NUR ---
ANUSHA AND TALKED DR TALBERT REGARDING RENEWAL OF HOME MEDS HE SAID DR BEAVERS COVERING TO HIM SO PAGED AND TALKED DR BEAVERS GOT THE ORDER TO RENEW THE HOME MEDS
[2020-06-10 08:27] VITALS: BP 176/68
[2020-06-10] MEDS ORDERED: HYDROCHLOROTHIAZIDE 25 MG TAB PO SCH (09:00)
[2020-06-10] MEDS ORDERED: ASPIRIN 81 MG CHEW TAB PO SCH (09:00)
[2020-06-10] MEDS ORDERED: BENAZEPRIL HCL 10 MG TAB PO SCH (09:00)
--- NOTE | 2020-06-10 09:00 | NUR ---
PAGED DR OVIEDO AND LEFT THE MESSAGE FOR CONSULTATION
[2020-06-10 09:21] VITALS: BP 176/68
[2020-06-10 11:37] LABS: CREATINE KINASE MB 2.9 ng/mL (0-5.0)
[2020-06-10 12:04] VITALS: BP 119/57
--- NOTE | 2020-06-10 12:56 | Consultation ---
DATE OF CONSULTATION: 06/10/2020 CARDIOLOGY CONSULTATION CONSULTING PHYSICIAN: Jaxson Sahni MD REASON FOR CONSULTATION: Chest pain. HISTORY OF PRESENT ILLNESS: A 79-year-old pleasant woman with history of hypertension, dyslipidemia, remote history of peptic ulcer disease, presents with complaints of epigastric discomfort radiating to the retrosternal area, described as burning following a meal with StemHam and spicy food. Symptoms have been unaffected by physical exertion and are otherwise not associated with other complaints. Symptoms have since improved. She denies any exertional dyspnea or chest discomfort. She has no other complaints at this time. A 12-system review is negative except for as noted above. PAST MEDICAL HISTORY: Remarkable for hypertension, dyslipidemia, and peptic ulcer disease. SOCIAL HISTORY: Negative for smoking, alcohol, or drugs. FAMILY HISTORY: Noncontributory. REVIEW OF SYSTEMS: Again, 12-system review negative except for as noted above. PHYSICAL EXAMINATION: VITAL SIGNS: Temperature 97.9, heart rate 76, blood pressure 119/58, respiratory rate 19, O2 saturation 100%. GENERAL: No acute distress. Alert. NECK: No JVD. CHEST: Clear to auscultation. CARDIOVASCULAR: Regular rate and rhythm. Normal S1, S2. No S3. No S4. No murmurs, no rubs. ABDOMEN: Soft. Bowel sounds positive. EXTREMITIES: No edema. Warm extremities. MEDICATIONS: Cardiovascular medications reviewed. Aspirin 81 mg daily, benazepril 10 mg daily, hydrochlorothiazide 12.5 mg daily, simvastatin 40 mg nightly, p.r.n. Zofran, p.r.n. morphine. LABORATORY STUDIES: Reviewed. BNP 34.8. Troponin-I 0.063. Sodium 137, potassium 4.1, chloride 105, bicarbonate 22, BUN 25, creatinine 1.04, glucose 108. White blood cells 6.8, hemoglobin 11.8, platelets 369. AST 21, ALT 17, alkaline phosphatase 99, total bilirubin 0.4. ASSESSMENT AND PLAN: A 79-year-old woman presents with epigastric discomfort radiating to retrosternal area/chest pain, history of hypertension, dyslipidemia, remote history of peptic ulcer disease. Echocardiogram reviewed, preserved left ventricular systolic function, normal regional wall motion. The patient has had negative cardiac biomarkers. Her chest discomfort pattern is most consistent with gastroesophageal reflux/peptic ulcer disease and nonexertional in pattern. At this point, no additional cardiac workup is advised. The patient can follow up in office in 4-6 weeks should chest pain pattern change or persists. Thank you for the opportunity to participate in the care of Ms. Orosco. Please feel free to call with any questions or concerns. MD ALVA Cantor/BUDDY /[id number]
--- NOTE | 2020-06-10 16:45 | NUR ---
PT WENT HOME IN SAFE CONDITION WITH HER DAUGHTER
--- NOTE | 2020-06-10 20:18 | Discharge Summary ---
PRIMARY CARE DOCTOR: Dr. Theodore Gilman. This is in coverage of Dr. Melissa. FINAL DIAGNOSIS: Noncardiac chest pain due to gastroesophageal reflux disease. SECONDARY DIAGNOSES: 1. Hypertension. 2. Hyperlipidemia. CONSULTANTS: Dr. Blackwood, Cardiology. PROCEDURES/STUDIES PERFORMED: Echocardiogram. HISTORY: Per dictated H and P. HOSPITAL COURSE: The patient was seen by Cardiology, who feels that she has GERD, which I agree. Workup is negative here including negative troponins x2 and unremarkable echocardiogram. The patient will be discharged. For GERD treatment, follow up with PCP and Cardiology, and possibly GI if no improvement after couple of weeks. CONDITION ON DISCHARGE: Improved. DISCHARGE MEDICATIONS: Please see medication reconciliation form. Yiching MD JOE Shelton/BUDDY /[id number] cc: Theodore Gilman MD
--- NOTE | 2020-06-10 20:53 | History and Physical ---
PRIMARY CARE DOCTOR: Dr. Theodore Gilman. This is in coverage of Dr. Melissa. CHIEF COMPLAINT: "Chest pain." HISTORY OF PRESENT ILLNESS: This is a 79-year-old woman, who presented to ER with 2 weeks of epigastric burning. The patient states that she eats a lot of spicy foods and also drink a lot of lemon. The patient denies any pain. The patient denies any chest discomfort. As a kid, the patient was told that she had ulcer, never had surgery. The patient denies any diabetes. Her epigastric burning sensation is not getting worse. The patient has not tried anything at home. Her bought some Tums, however, she has not tried yet. Otherwise, denies shortness of breath. No nausea or vomiting. The patient is eating fine. PAST MEDICAL AND SURGICAL HISTORY: 1. Hypertension. 2. Hypercholesterolemia. MEDICATIONS: Please see medication reconciliation form. ALLERGIES: NONE. SOCIAL HISTORY: Does not drink. FAMILY HISTORY: Positive for diabetes. REVIEW OF SYSTEMS: A 10-point review of systems obtained, nothing else is significant other than what is stated in HPI. PHYSICAL EXAMINATION: VITAL SIGNS: Temperature 98.1, pulse 63, respiratory rate 18, and blood pressure 119/57. GENERAL: No acute distress. SKIN: No rash. HEENT: Anicteric. Oropharynx is clear. LUNGS: Clear. HEART: Regular rate and rhythm. Normal S1 and S2. GI: Abdomen is soft and nontender. NEUROLOGIC: Alert and oriented x3. Cranial nerves 2 through 12 grossly intact. PSYCHIATRIC: No hallucination. MUSCULOSKELETAL: Painless range of motion. LABORATORY DATA: White count 7, hemoglobin 12, and platelet count 369. Creatinine 1.04. Troponins negative x2. UA was negative. Chest x-ray did not show any acute disease. Head CT did not show any acute disease. ASSESSMENT AND PLAN: 1. Most likely gastroesophageal reflux disease. The patient has been evaluated by Cardiology, Dr. Blackwood, who feels the same way that this is gastroesophageal reflux disease. I told her to take Pepcid 20 mg twice a day [id number] for 2 weeks and also Tums as needed. If this does not get better after 2 weeks, then to follow up with her primary care doctor. At that time, we will probably need to get consultation from GI and Cardiology. Her echocardiogram was unremarkable. 2. Hypertension, stable. 3. Gastrointestinal and deep venous thrombosis prophylaxis not indicated. 4. Disposition, home today. Yiching MD JOE Shelton/BUDDY /[id number] cc: Theodore Gilman MD
[2020-06-10] MEDS ORDERED: SIMVASTATIN 40 MG TAB PO SCH (21:00)
== END 2020-06-10 16:45 | disposition home or self-care (01) ==
LOC: ER 22:49 → ERHOLD 06-10 02:57 → MED/SURG2 06-10 03:11
PROVIDERS: ADMIT Internal Medicine; ATTEND Internal Medicine
DX: R07.89 Other chest pain (principal); E78.5 Hyperlipidemia, unspecified; I10 Essential (primary) hypertension; K21.9 Gastro-esophageal reflux disease without esophagitis; Z11.59 Encounter for screening for other viral diseases
CPT/HCPCS: 36415; 70450; 71045; 80053; 81001; 82550 ×2; 82553 ×2; 83880; 84484 ×2; 85025; 93005; 93306; 99284; G0378; U0002

== ENCOUNTER 2021-02-04 21:57 | Emergency (ER) | payer MEDICARE ==
[~2021-02-04] VITALS: Ht 152.4 cm; Wt 62.1 kg
[~2021-02-04 21:57] MED LIST: ASPIRIN81 MG; BENAZEPRIL-HCT1 EAC1 PO; SIMVASTATIN40 MG PO
[2021-02-04 22:49] LABS: BASOPHILS % 0.3 % (0.0-1.0); EOSINOPHILS # (AUTO) 0.1 (0.0-0.4); EOSINOPHILS % 1.5 % (0.0-6.0); HEMATOCRIT 35.1 % (34.2-44.1); HEMOGLOBIN 11.4 g/dL (12.0-16.0); LYMPHOCYTES # (AUTO) 2.3 (1.0-3.2); LYMPHOCYTES % 34.2 % (18.0-39.1); MEAN CORPUSCULAR HEMOGLOBIN 29.8 pg (28-32); MEAN CORPUSCULAR HGB CONC 32.5 g/dL (31-35); MEAN CORPUSCULAR VOLUME 91.9 fL (81-99); MONOCYTES # (AUTO) 0.6 (0.2-0.8); MONOCYTES % 8.2 % (4.4-11.3); NEUTROPHILS # (AUTO) 3.8 (2.1-6.9); NEUTROPHILS % 55.4 % (38.7-80.0); PLATELET COUNT 413 x10e3/uL (140-360); RED BLOOD COUNT 3.82 x10e6/uL (3.6-5.1)
[2021-02-04 23:07] LABS: AMYLASE 51 U/L (25-125); LIPASE 57 U/L (8-78)
[2021-02-04 23:11] LABS: ALBUMIN 3.8 g/dL (3.5-5.0); ALBUMIN/GLOBULIN RATIO 0.9 (0.8-2.0); ANION GAP 13.6 mmol/L (8-16); CALCIUM 9.9 mg/dL (8.4-10.2); CREATININE, SERUM 0.9 mg/dL (0.57-1.11); POTASSIUM 3.6 mmol/L (3.5-5.1)
[2021-02-04 23:17] LABS: CREATINE KINASE MB 1.9 ng/mL (0-5.0)
[2021-02-05 00:42] VITALS: BP 159/85
== END 2021-02-05 03:44 | disposition home or self-care (01) ==
LOC: ER 22:15
DX: R07.89 Other chest pain (principal); I44.7 Left bundle-branch block, unspecified; I10 Essential (primary) hypertension; Z79.82 Long term (current) use of aspirin; Z79.899 Other long term (current) drug therapy
CPT/HCPCS: 36415; 71045; 80053; 82150; 82550; 82553; 83690; 84484; 85025; 99284

== ENCOUNTER 2021-07-10 13:47 | Emergency (ER) | payer MEDICARE ==
[~2021-07-10] VITALS: Ht 152.4 cm; Wt 62.1 kg
[2021-07-10] MEDS ORDERED: ACETAMINOPHEN 325 MG TAB PO ONE (14:30)
[2021-07-10 14:57] LABS: BASOPHILS % 0.5 % (0.0-1.0); EOSINOPHILS # (AUTO) 0.1 (0.0-0.4); EOSINOPHILS % 1.4 % (0.0-6.0); HEMATOCRIT 37.2 % (34.2-44.1); LYMPHOCYTES # (AUTO) 2.1 (1.0-3.2); LYMPHOCYTES % 27.9 % (18.0-39.1); MEAN CORPUSCULAR HEMOGLOBIN 30.3 pg (28-32); MEAN CORPUSCULAR HGB CONC 32.3 g/dL (31-35); MEAN CORPUSCULAR VOLUME 93.9 fL (81-99); MONOCYTES # (AUTO) 0.6 (0.2-0.8); MONOCYTES % 7.6 % (4.4-11.3); NEUTROPHILS # (AUTO) 4.6 (2.1-6.9); NEUTROPHILS % 62.3 % (38.7-80.0); PLATELET COUNT 388 x10e3/uL (140-360); RED BLOOD COUNT 3.96 x10e6/uL (3.6-5.1); RED CELL DISTRIBUTION WIDTH 14.5 % (11.7-14.4)
[2021-07-10 15:02] LABS: INR 0.96; PROTHROMBIN TIME 13.6 seconds (11.9-14.5)
[2021-07-10 15:03] LABS: PARTIAL THROMBOPLASTIN TIME 28.4 seconds (23.8-35.5)
[2021-07-10 15:10] LABS: ALBUMIN 3.6 g/dL (3.5-5.0); ALBUMIN/GLOBULIN RATIO 0.8 (0.8-2.0); CALCIUM 9.6 mg/dL (8.4-10.2); CREATININE, SERUM 0.95 mg/dL (0.57-1.11); MAGNESIUM 1.7 MG/DL (1.3-2.1)
[2021-07-10] MEDS ORDERED: LABETALOL HCL 5 MG/ML 20ML VIAL IV NR (15:45)
[2021-07-10] MEDS ORDERED: LABETALOL HCL 20 MG/4 ML SYRINGE IV ONE (15:45)
[2021-07-10] MEDS ORDERED: LABETALOL HCL 20 ML ONE (15:52)
[2021-07-10] MEDS ORDERED: NICARDIPINE 20MG/200ML PREMIX 200 ML IV SCH (16:00)
== END 2021-07-10 18:14 | disposition other institution (70) ==
LOC: ER 14:06
DX: R53.1 Weakness (principal); I61.0 Nontraumatic intracerebral hemorrhage in hemisphere, subcortical; R94.31 Abnormal electrocardiogram [ECG] [EKG]; I10 Essential (primary) hypertension; E78.5 Hyperlipidemia, unspecified; Z20.822 Contact with and (suspected) exposure to COVID-19; Z86.73 Personal history of transient ischemic attack (TIA), and cerebral infarction without residual deficits
CPT/HCPCS: 36415; 70450; 80053; 83735; 85025; 85610; 85730; 93005; 99284; J3490; U0002

== ENCOUNTER 2022-04-21 10:34 | Emergency (ER) | payer MEDICARE ==
[~2022-04-21] VITALS: Ht 152.4 cm; Wt 62.1 kg
[2022-04-21 12:22] VITALS: BP 172/73
== END 2022-04-21 12:24 | disposition home or self-care (01) ==
LOC: ER 10:40
DX: H93.19 Tinnitus, unspecified ear (principal); R51.9 Headache, unspecified; I10 Essential (primary) hypertension; Z86.73 Personal history of transient ischemic attack (TIA), and cerebral infarction without residual deficits; E78.5 Hyperlipidemia, unspecified
CPT/HCPCS: 36415; 70450; 82948; 93005; 99283

== ENCOUNTER 2025-05-30 16:41 | Emergency (ER) | payer MEDICARE ==
[~2025-05-30] VITALS: Ht 152.4 cm; Wt 57.2 kg
[2025-05-30 16:52] VITALS: TEMP 98.6
[2025-05-30] MEDS ORDERED: SODIUM CHLORIDE FLUSH 10 ML SYR IV PRN (17:00)
[2025-05-30 17:18] LABS: BASOPHILS % 0.2 % (0.0-1.0); EOSINOPHILS % 0.7 % (0.0-6.0); LYMPHOCYTES % 31.3 % (18.0-39.1); MONOCYTES % 8.2 % (4.4-11.3); NEUTROPHILS % 59.3 % (38.7-80.0); RED CELL DISTRIBUTION WIDTH 15.3 % (11.7-14.4)
[2025-05-30 17:43] LABS: EST GLOMERULAR FILTRATION RATE 59.0 ML/MIN (>=60)
[2025-05-30 17:46] VITALS: BP 129/64
[2025-05-30] MEDS: HYDRALAZINE HCL 20 MG/ML VIAL IV STA (17:46)
[2025-05-30 18:44] VITALS: PULSE 70; RESP 18; O2SAT 98
[2025-05-30] MEDS: ASPIRIN 81 MG CHEW TAB PO ONE (19:51)
== END 2025-05-30 18:56 | disposition home or self-care (01) ==
LOC: ER 16:53
DX: R06.02 Shortness of breath (principal); I10 Essential (primary) hypertension; E78.5 Hyperlipidemia, unspecified; Z86.73 Personal history of transient ischemic attack (TIA), and cerebral infarction without residual deficits
CPT/HCPCS: 36415; 71045; 80053; 83880; 84484; 85025; 93005; 94760; 99284